=== PATIENT | female | born 1935 | race Caucasian/White ===

== ENCOUNTER 2016-08-13 15:50 | Inpatient (IN) | payer MEDICARE, OTHER ==
[2016-08-13] VITALS (13 sets, daily range): BP systolic 112–163; BP diastolic 52–106; PULSE 80–113; RESP 11–24; TEMP 98.4–98.8; O2SAT 96–99
[~2016-08-13] VITALS: Ht 165.1 cm; Wt 54.2 kg
[~2016-08-13 15:50] MED LIST: DARV PO; GLUCTAB PO; LOVA1TAB47 PO
--- NOTE | 2016-08-13 16:11 | PD ---
HPI Chief Complaint: Neuro Symptoms/ Deficits Time Seen by Provider: 16:01 Travel History International Travel<30 days: No Contact w/Intl Traveler<30days: No Traveled to known affect area: No History of Present Illness HPI 80-year-old female with history of diabetes, previous TIA, presents to the ER today brought in by her because she has had an episode of left arm weakness yesterday that lasted an hour and went away on its own, and today had slurring of speech and confusion for about an hour prior to arrival, although symptoms have now subsided. She denies any current numbness or weakness. She does complain of a 7 out of 10 current headache. She states the headache started this morning. She was incontinent of stool while in the ER waiting for evaluation. The symptoms have largely subsided at this point. Modifying Factors: None Associated Signs & Symptoms: Episodes of left arm weakness, confusion, headache , blurring of the speech Risk Factors: Previous TIA PFSH Past Medical History Cancer: No Diabetes: Yes Glaucoma: No Hepatitis: No Hiatal Hernia: No Hypertension: No Thyroid Disease: No Past Surgical History Pacemaker: No Social History Alcohol Use: No Tobacco Use: No Allergies-Medications (Allergen,Severity, Reaction): Coded Allergies: No Known Allergies (Verified , 08/01/09) Uncoded Allergies: NKA (Allergy, Unknown, 01/09/03) Reported Meds & Prescriptions Reported Meds & Active Scripts Active Reported Aspirin Low Dose (Aspirin) 81 Mg Chew 81 Mg CHEW DAILY Lisinopril 10 Mg Tab 10 Mg PO DAILY Lovastatin 20 Mg Tab 20 Mg PO DAILY Metformin (Metformin HCl) 500 Mg Tab 500 Mg PO DAILY With a meal Review of Systems Except as stated in HPI: all other systems reviewed are Neg Physical Exam Narrative GENERAL: Well-developed elderly white female patient currently none acute distress. She does appear mildly anxious. Awake, alert, oriented 3. SKIN: Focused skin assessment warm/dry. HEAD: Atraumatic. Normocephalic. EYES: Pupils equal and round. No scleral icterus. No injection or drainage. ENT: No nasal bleeding or discharge. Mucous membranes pink and moist. NECK: Trachea midline. No JVD. CARDIOVASCULAR: Regular rate and rhythm. No murmur appreciated. RESPIRATORY: No accessory muscle use. Clear to auscultation. Breath sounds equal bilaterally. GASTROINTESTINAL: Abdomen soft, non-tender, nondistended. Hepatic and splenic margins not palpable. MUSCULOSKELETAL: No obvious deformities. No clubbing. No cyanosis. No edema. NEUROLOGICAL: Awake and alert. No obvious cranial nerve deficits. Motor grossly within normal limits. Normal speech. No pronator drift. PSYCHIATRIC: Appropriate mood and affect; insight and judgment normal. Data Data Last Documented VS Vital Signs Date Time Temp Pulse Resp B/P Pulse Ox O2 Delivery O2 Flow Rate FiO2 08/13/16 17:10 113 20 163/106 97 Room Air 08/13/16 16:44 98.8 Orders Electrocardiogram (08/13/16 16:) Prothrombin Time / Inr (Pt) (08/13/16 16:01) Act Partial Throm Time (Ptt) (08/13/16 16:01) Complete Blood Count With Diff (08/13/16 16:) Comprehensive Metabolic Panel (08/13/16 16:) Troponin I (08/13/16 16:) Ct Brain W/O Iv Contrast(Rout) (08/13/16 16:) Chest, Single Ap (08/13/16 16:) Ecg Monitoring (08/13/16 16:) Iv Access Insert/Monitor (08/13/16 16:) Oximetry (08/13/16 16:01) Sodium Chloride 0.9% Flush (Ns Flush) (08/13/16 16:15) Ondansetron Inj (Zofran Inj) (08/13/16 17:15) Labs Laboratory Tests Test 08/13/16 16:05 White Blood Count 9.7 TH/MM3 Red Blood Count 3.98 MIL/MM3 Hemoglobin 10.5 GM/DL Hematocrit 32.7 % Mean Corpuscular Volume 82.2 FL Mean Corpuscular Hemoglobin 26.4 PG Mean Corpuscular Hemoglobin 32.1 % Concent Red Cell Distribution Width 14.9 % Platelet Count 420 TH/MM3 Mean Platelet Volume 8.5 FL Neutrophils (%) (Auto) 49.5 % Lymphocytes (%) (Auto) 41.2 % Monocytes (%) (Auto) 6.1 % Eosinophils (%) (Auto) 1.9 % Basophils (%) (Auto) 1.3 % Neutrophils # (Auto) 4.8 TH/MM3 Lymphocytes # (Auto) 4.0 TH/MM3 Monocytes # (Auto) 0.6 TH/MM3 Eosinophils # (Auto) 0.2 TH/MM3 Basophils # (Auto) 0.1 TH/MM3 CBC Comment DIFF FINAL Differential Comment Prothrombin Time 10.1 SEC Prothromb Time International 0.9 RATIO Ratio Activated Partial 26.3 SEC Thromboplast Time Sodium Level 141 MEQ/L Potassium Level 4.1 MEQ/L Chloride Level 102 MEQ/L Carbon Dioxide Level 25.4 MEQ/L Anion Gap 14 MEQ/L Blood Urea Nitrogen 15 MG/DL Creatinine 0.94 MG/DL Estimat Glomerular Filtration 57 ML/MIN Rate Random Glucose 95 MG/DL Calcium Level 9.0 MG/DL Total Bilirubin 0.3 MG/DL Aspartate Amino Transf 11 U/L (AST/SGOT) Alanine Aminotransferase 12 U/L (ALT/SGPT) Alkaline Phosphatase 63 U/L Troponin I LESS THAN 0.02 NG/ML Total Protein 7.1 GM/DL Albumin 3.2 GM/DL [facility] Medical Decision Making Medical Screen Exam Complete: Yes Emergency Medical Condition: Yes Medical Record Reviewed: Yes Interpretation(s) EKG shows NSR, no ST elevation or depression, and no arrhythmias. No significant T-wave inversions. Laboratory Tests Test 08/13/16 16:05 Red Blood Count 3.98 MIL/MM3 (4.00-5.30) Hemoglobin 10.5 GM/DL (11.6-15.3) Hematocrit 32.7 % (35.0-46.0) Mean Corpuscular Hemoglobin 26.4 PG (27.0-34.0) Estimat Glomerular Filtration 57 ML/MIN (>89) Rate Aspartate Amino Transf 11 U/L (15-37) (AST/SGOT) Troponin I LESS THAN 0.02 NG/ML (0.02-0.05) Albumin 3.2 GM/DL (3.4-5.0) Differential Diagnosis Left arm weakness, slurred speech, confusionTIA/CVA versus ICH versus electrolyte abnormalities versus dysrhythmias Narrative Course Initial NIH stroke score was 0. Symptoms have resolved by the time she is seen by me in the ER. At this point, she would not be a TPA candidate. CT of the brain did not reveal any signs of acute intracranial processes. Patient had taken her own full dose aspirin and hour prior to arrival to the ER according to patient's . Lab work did not indicate significant electrolyte abnormalities. EKG did not show dysrhythmias. At this point, my plan would be to admit the patient for further evaluation. Case is discussed with Dr. story for admission. Diagnosis Primary Impression: TIA (transient ischemic attack) Admitting Information Admitting Physician Requests: Admit Yessi Salinas MD Aug 13, 2016 16:11
[2016-08-13] MEDS ORDERED: SODIUM CHLORIDE 0.9% FLUSH 10 ML FLUSH IVF PRN ×2 (16:15→17:45)
[2016-08-13 16:16] LABS: AUTOMATED NEUTROPHIL # 4.8 TH/MM3 (1.8-7.7); BASOPHIL # 0.1 TH/MM3 (0-0.2); BASOPHIL % 1.3 % (0.0-2.0); EOSINOPHIL # 0.2 TH/MM3 (0-0.4); EOSINOPHIL % 1.9 % (0.0-4.0); HEMATOCRIT 32.7 % (35.0-46.0); HEMO FLAGS DIFF FINAL; LYMPH % 41.2 % (9.0-44.0); MEAN CELL VOLUME 82.2 FL (80.0-100.0); MEAN CORPUSCULAR HEMOGLOBIN 26.4 PG (27.0-34.0); MEAN CORPUSCULAR HGB CONC 32.1 % (32.0-36.0); MONO % 6.1 % (0.0-8.0); NEUT % 49.5 % (16.0-70.0); PLATELET COUNT 420 TH/MM3 (150-450); RED BLOOD COUNT 3.98 MIL/MM3 (4.00-5.30); RED CELL DISTRIBUTION WIDTH 14.9 % (11.6-17.2); WHITE BLOOD COUNT 9.7 TH/MM3 (4.0-11.0)
[2016-08-13 16:24] LABS: CHLORIDE 102 MEQ/L (98-107); POTASSIUM 4.1 MEQ/L (3.5-5.1); SODIUM (NA) 141 MEQ/L (136-145)
[2016-08-13 16:29] LABS: ANION GAP 14 MEQ/L (5-15); BICARBONATE 25.4 MEQ/L (21.0-32.0); BLOOD UREA NITROGEN 15 MG/DL (7-18)
[2016-08-13 16:32] LABS: ALT (GPT) 12 U/L (10-53); AST (GOT) 11 U/L (15-37); GLOMERULAR FILTRATION RATE 57 ML/MIN (>89)
[2016-08-13 16:33] LABS: TOTAL BILIRUBIN ADULT 0.3 MG/DL (0.2-1.0)
[2016-08-13 16:34] LABS: APTT (PATIENT) 26.3 SEC (24.3-30.1); INTERNATIONAL NORMALIZED RATIO 0.9 RATIO; PROTHROMBIN TIME - PATIENT 10.1 SEC (9.8-11.6)
[2016-08-13] MEDS ORDERED: METF500T PO (16:34)
[2016-08-13] MEDS ORDERED: LISI10TA3 PO (16:34)
[2016-08-13] MEDS ORDERED: ASPI81CH37 CHEW (16:34)
[2016-08-13] MEDS ORDERED: LOVA20TA PO (16:34)
[2016-08-13 16:35] LABS: ALKALINE PHOSPHATASE 63 U/L (45-117)
--- NOTE | 2016-08-13 16:47 | RADHPO ---
EXAM DATE/TIME: 08/13/2016 16:38 [facility] COMPARISON: No previous studies available for comparison. INDICATIONS : Possible CVA. Numbness and weakness. MEDICAL HISTORY : Diabetes mellitus type II. SURGICAL HISTORY : None. ENCOUNTER: Initial ACUITY: 1 day PAIN SCORE: 0/10 LOCATION: Bilateral chest FINDINGS: The lungs are focally clear. There is mild biapical probable pleural parenchymal scarring which appea rs benign. No evidence of effusion. Cardiomediastinal contours satisfactory. Thoracic skeleton appear s grossly intact. CONCLUSION: No acute disease Farzad Franklin MD on August 13, 2016 at 16:45 Board Certified Radiologist. This report was verified electronically.
--- NOTE | 2016-08-13 16:54 | RADHPO ---
EXAM DATE/TIME: 08/13/2016 16:20 [facility] COMPARISON: No previous studies available for comparison. INDICATIONS : Left arm weakness. Slurred speech. Confusion. RADIATION DOSE: 59.16 CTDIvol (mGy) MEDICAL HISTORY : Diabetes mellitus type 2. SURGICAL HISTORY : None. ENCOUNTER: Initial ACUITY: 2 days PAIN SCALE: 1/10 LOCATION: cranial TECHNIQUE: Multiple contiguous axial images were obtained of the head. Using automated exposure control and adj ustment of the mA and/or kV according to patient size, radiation dose was kept as low as reasonably a chievable to obtain optimal diagnostic quality images. FINDINGS: CEREBRUM: The ventricles are normal for age. No evidence of midline shift, mass lesion, hemorrhage or acute in farction. No extra-axial fluid collections are seen. POSTERIOR FOSSA: The cerebellum and brainstem are intact. The 4th ventricle is midline. The cerebellopontine angle i s unremarkable. EXTRACRANIAL: The visualized portion of the orbits is intact. SKULL: The calvaria is intact. No evidence of skull fracture. CONCLUSION: Normal examination. Left lens surgery. Onel Morrison MD on August 13, 2016 at 16:51 Board Certified Radiologist. This report was verified electronically.
[2016-08-13] MEDS ORDERED: ONDANSETRON HCL 4 MG/2 ML VIAL IV PUSH ONE (17:15)
[2016-08-13] MEDS ORDERED: DILTIAZEM HCL 25 MG/5 ML VIAL IV PUSH ONE (17:45)
[2016-08-13] MEDS ORDERED: DILTIAZEM INJ 125 MG in SODIUM CHLORIDE 0.9% INJ 100 ML IV SCH (17:45)
[2016-08-13] MEDS ORDERED: ASPIRIN 325 MG TAB PO ONE (18:00)
[2016-08-13] MEDS ORDERED: HEPARIN-D5W INJ 250 ML IV SCH (18:00)
[2016-08-13] MEDS ORDERED: ONDANSETRON HCL 4 MG/2 ML VIAL IV PUSH PRN (19:00)
[2016-08-13] MEDS ORDERED: GLUCAGON 1 MG/ML VIAL OTHER PRN (19:00)
[2016-08-13] MEDS ORDERED: DEXTROSE 50% IN WATER 50 ML VIAL(D50) IV PUSH PRN (19:00)
[2016-08-13] MEDS ORDERED: ZOLPIDEM TARTRATE 5 MG TAB PO PRN (19:15)
[2016-08-13] MEDS ORDERED: ACETAMINOPHEN 325 MG TAB PO PRN (19:15)
--- NOTE | 2016-08-13 19:34 | MH ---
cc: PIETRO ODONNELL M.D. DATE OF ADMISSION: 08/13/2016 ADMITTING DIAGNOSIS: 1. Recurrent episodes of weakness left arm with dysarthria and numbness of the left upper extremity and probable TIA. 2. New-onset atrial fibrillation with rapid ventricular response. 3. Type 2 diabetes mellitus. 4. Hyperlipidemia. 5. History of hypertension, not currently taking any blood pressure medicine. HISTORY OF PRESENT ILLNESS: This is a 80-year-old white female who came to the emergency room today after having another episode where she had slurring of her speech. She reports that yesterday morning she had about a 30-minute episode wherein she had weakness and difficulty using her left arm associated with some slight numbness of the left upper extremity. She had some slight trouble with dysarthria. She had maybe some slight confusion, nothing severe. The symptoms subsided as mentioned after about 30 minutes. She had no chest pain or shortness of breath then. She could not say for sure whether she had any palpitations of her heart then. She does take a baby aspirin a day and when her symptoms went away she felt fine the rest of the day and last night but around two o'clock today her noticed that she had slurring of her speech. She did not seem to have the arm symptoms at this time. He brought her to the emergency room and by the time they got here, her symptoms were pretty much back to normal. She had a CT brain scan that was negative. She was being admitted for a TIA. While she was in the emergency department, she had to go to the bathroom and then became nauseated and then she was noted to go into rapid atrial fibrillation with a heart rate of around 150 to 160 and has been put on a Cardizem drip and her heart rate is down around 100 but still in atrial fibrillation. The neurologist was consulted over the phone by the emergency room physician and it has been recommended she get on a heparin drip. She is being admitted for further evaluation of her atrial fibrillation and TIA. PAST MEDICAL HISTORY: 1. She apparently has had some hypertension. She was taking lisinopril but had side effects to it and just did not feel well. She states she had headache and weakness with it so she had not been taking any blood pressure medicine. She has hyperlipidemia but also and was taking lovastatin but had stopped it several months ago because it did not agree with her. The only medicine she is on is metformin for diabetes. 2. She has had type 2 diabetes for several years. 3. She denies any history of heart disease, heart failure, angina, no history of arrhythmia no lung disease, liver or kidney disease. No peptic ulcer. No colon disease. No cancer. 4. She had a questionable TIA over a year ago. It sounds like she was evaluated by [facility] Neurologist, Dr. Garcia but everything was negative. She has only been on a baby aspirin. PAST SURGICAL HISTORY: Left cataract extraction with lens implant. ALLERGIES: SHE HAD SIDE EFFECTS TO LOVASTATIN AND LISINOPRIL. MEDICATIONS: Metformin 500 milligrams two twice a day. FAMILY HISTORY: Her mother when she was only about 2 years old of tuberculosis. She lived with her grandmother. She never knew her father. SOCIAL HISTORY: She is . Never smoked. She does not use alcohol. 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 REVIEW OF SYSTEMS: GENERAL: No fever, chills or sweats. HEAD, EYES, EARS, NOSE, THROAT: No double vision. No runny nose or sore throat. CARDIOVASCULAR: She had no palpitations or chest pain or shortness of breath. She did have the atrial fibrillation that just started in the emergency department. GASTROINTESTINAL: She had the episode of nausea when she was in atrial fibrillation. She has had no melena, rectal bleeding, abdominal pain or diarrhea. GENITOURINARY: No dysuria or hematuria or incontinence. MUSCULOSKELETAL: Without complaints. NEUROLOGIC: As mentioned. PHYSICAL EXAMINATION: GENERAL: A pleasant white female who is in no acute distress. VITAL SIGNS: Her heart rate now is around 98 to 109 and irregular. Her blood pressure was 136/84 when she first came into the emergency department. The last check was 151/63. 02 saturation 98%. She has been afebrile. HEAD, EYES, EARS, NOSE, THROAT: Tympanic membranes clear. Nose negative. She has a lens implant left eye. Mouth without inflammation or lesions. She has dentures. NECK: Without bruits. No jugular venous distention. HEART: Irregular rhythm. No significant murmur heard. LUNGS: Clear. ABDOMEN: Abdomen soft and nontender. No masses. EXTREMITIES: Pulses about 1-1/2+ both feet. No edema. No calf tenderness. SKIN: Negative. NEUROLOGIC: She is alert and oriented. Motor strength appears to be equal in all extremities with no definite [id number] testing was normal. We did not examine her gait. LABORATORY: Her BUN was 15, creatinine was 0.94, GFR 57, sodium 141, potassium 4.1, chloride 102, carbon dioxide 25.4. AST and ALT and alkaline phosphatase normal. Troponin less than 0.02. Total protein 7.1, albumin 3.2. White count was 9.7, hemoglobin was 10.5, MCV 82.2. IMAGING STUDIES: Chest x-ray showed no acute disease. CT brain scan showed normal exam. ASSESSMENT: As noted. PLAN: 1. The patient has been started on heparin. 2. A consult to neurology has been placed and Dr. Starr has already talked to the emergency room physician. 3. She will be maintained on Cardizem drip for now and will consult cardiology. 4. A 2-D echocardiogram is being ordered. 5. Carotid ultrasound. 6. MRI brain scan. 7. Will just monitor her blood pressure for now. 8. Will hold her Metformin for now since she is going to have imaging with contrast. Will just do Accu-Cheks and blood sugars for now. 9. She will be kept at bed rest. 10. Will check a TSH and a lipid profile. MD WILLIAMS Siddiqui/CIARA /6:53 PM /7:14 PM
[2016-08-13] MEDS: INSULIN ASPART SUPPLEMENTAL SCALE SQ SCH (21:00)
--- NOTE | 2016-08-13 22:57 | EKG ---
Date Performed: 08/13/2016 Time Performed: 17:17:04 PTAGE: 80 years EKG: Atrial fibrillation with rapid ventricular response Extensive ST-T changes may be due to my ocardial ischemia Abnormal ECG PREVIOUS TRACING : 08/13/2016 16.11 Compared to previous tracing, atrial fibrillation has repla chad Sinus rhythm , diffuse ST/T changes are now more pronounced. DOCTOR: Ben Moise Interpretating Date/Time 08/13/2016 22:56:16
--- NOTE | 2016-08-13 23:03 | EKG ---
Date Performed: 08/13/2016 Time Performed: 16:11:58 PTAGE: 80 years EKG: Sinus rhythm with PAC(s) Extensive ST-T changes, consider ischemia Borderline ECG PREVIOUS TRACING : 03/22/2002 22.43 Compared to previous tracing, ST/T changes diffusely are no w present. DOCTOR: Ben Moise Interpretating Date/Time 08/13/2016 23:02:12
[2016-08-14] VITALS (11 sets, daily range): BP systolic 110–165; BP diastolic 46–79; PULSE 66–79; RESP 8–29; TEMP 97.2–98.4; O2SAT 96–97
[2016-08-14 01:00] LABS: APTT (PATIENT) 39.4 SEC (24.3-30.1)
--- NOTE | 2016-08-14 06:07 | HHI.PR ---
Subjective Remarks She has no complaints. She converted to sinus rhythm after leaving the ER. Still on low dose of Cardizem drip and monitor shows sinus rhythm with an occasional PAC. Objective Vitals Vital Signs Date Time Temp Pulse Resp B/P Pulse Ox O2 Delivery O2 Flow Rate FiO2 08/14/16 03:01 66 18 110/46 08/14/16 02:01 68 8 115/46 08/14/16 01:00 78 22 122/59 08/14/16 00:20 78 29 122/59 08/14/16 00:01 97.2 74 16 112/48 08/14/16 00:01 74 16 112/48 08/13/16 23:01 80 23 116/62 08/13/16 22:00 84 16 129/60 08/13/16 21:00 88 24 126/57 97 08/13/16 20:04 97 149/65 96 08/13/16 20:00 98 11 141/66 97 08/13/16 20:00 98.4 98 11 141/66 97 08/13/16 20:00 98.4 98 11 141/66 97 08/13/16 19:54 112/84 08/13/16 19:14 98 132/63 97 08/13/16 18:46 107 151/63 98 08/13/16 18:13 97 140/63 98 08/13/16 17:54 99 115/52 98 08/13/16 17:10 113 20 163/106 97 Room Air 08/13/16 16:44 98.8 96 16 136/84 99 08/13/16 16:14 99 08/13/16 16:14 98.8 96 16 136/84 99 08/13/16 08/13/16 08/14/16 15:00 23:00 07:00 Intake Total 236 ml Output Total 300 ml 300 ml Balance -64 ml -300 ml Intake Oral 200 ml IV Total 36 ml Output Urine Total 300 ml 300 ml Result Diagram: 08/13/16 1605 08/13/16 1605 Other Results Laboratory Tests Test 08/13/16 08/14/16 16:05 00:30 White Blood Count 9.7 TH/MM3 Red Blood Count 3.98 MIL/MM3 Hemoglobin 10.5 GM/DL Hematocrit 32.7 % Mean Corpuscular Volume 82.2 FL Mean Corpuscular Hemoglobin 26.4 PG Mean Corpuscular Hemoglobin 32.1 % Concent Red Cell Distribution Width 14.9 % Platelet Count 420 TH/MM3 Mean Platelet Volume 8.5 FL Neutrophils (%) (Auto) 49.5 % Lymphocytes (%) (Auto) 41.2 % Monocytes (%) (Auto) 6.1 % Eosinophils (%) (Auto) 1.9 % Basophils (%) (Auto) 1.3 % Neutrophils # (Auto) 4.8 TH/MM3 Lymphocytes # (Auto) 4.0 TH/MM3 Monocytes # (Auto) 0.6 TH/MM3 Eosinophils # (Auto) 0.2 TH/MM3 Basophils # (Auto) 0.1 TH/MM3 CBC Comment DIFF FINAL Differential Comment Prothrombin Time 10.1 SEC Prothromb Time International 0.9 RATIO Ratio Activated Partial 26.3 SEC 39.4 SEC Thromboplast Time Sodium Level 141 MEQ/L Potassium Level 4.1 MEQ/L Chloride Level 102 MEQ/L Carbon Dioxide Level 25.4 MEQ/L Anion Gap 14 MEQ/L Blood Urea Nitrogen 15 MG/DL Creatinine 0.94 MG/DL Estimat Glomerular Filtration 57 ML/MIN Rate Random Glucose 95 MG/DL Calcium Level 9.0 MG/DL Total Bilirubin 0.3 MG/DL Aspartate Amino Transf 11 U/L (AST/SGOT) Alanine Aminotransferase 12 U/L (ALT/SGPT) Alkaline Phosphatase 63 U/L Troponin I LESS THAN 0.02 NG/ML Total Protein 7.1 GM/DL Albumin 3.2 GM/DL Labs today pending Imaging Last Impressions Head CT 08/13/16 1601 Signed Impressions: Service Date/Time: August 16:20 - CONCLUSION: Normal examination. Left lens surgery. Onel Morrison MD Chest X-Ray 08/13/16 1601 Signed Impressions: Service Date/Time: August 16:38 - CONCLUSION: No acute disease Farzad Franklin MD Objective Remarks Exam: Pleasant elderly female in no distress. HEENT: Pupils equal, no scleral icterus, mouth negative Neck: No JVD Heart: RRR with no murmur Lungs:Clear Abdomen: Soft, nontender, no masses Extremities: No edema Neuro: Alert, oriented, normal motor and sensory exam A/P Assessment and Plan Assessment: --TIA --New onset atrial fibrillation converted to sinus rhythm on Cardizem drip --Hypertension---patient had stopped her Lisinopril because of side effects --Hyperlipidemia--patient had stopped her statin drug due to side effects --Type 2 diabetes mellitus--Metformin on hold since imaging has been ordered Plan: Start on oral Cardizem ER 180mg daily for hypertension and for rate control. Cardiology and neurology have been consulted. I will leave decision as to what type of oral anticoagulation is needed. She is on Heparin now. She had a carotid ultrasound, 2D echo, and MRI brain ordered for today. She is asymptomatic from a neurology standpoint now. If her tests are negative and she can be transitioned to oral therapy for further TIA prevention then she possible could be discharged later today if okay with consultants. Delano Akins MD Aug 14, 2016 06:07
[2016-08-14 06:11] LABS: POTASSIUM 3.9 MEQ/L (3.5-5.1)
[2016-08-14 06:15] LABS: BICARBONATE 29.3 MEQ/L (21.0-32.0)
[2016-08-14] MEDS: INSULIN ASPART SUPPLEMENTAL SCALE SQ SCH ×4 (07:00→21:00)
--- NOTE | 2016-08-14 07:40 | PD.CONS ---
HPI Service CV Consult Requested By Dr. Akins Reason for Consult a-fib Primary Care Physician Loida Benson MD History of Present Illness Here with HTN and type 2 diabetes admitted for TI. She states she yesterday she wa having episodic slurred speech and some confusion. She was brought to the ER and eventually witnessed to go into atrial fibrillation with RVR. She denies any chest pain, shortness of breath or palpitations Review of Systems Consitutional: DENIES: Fatigue, Fever, Chills, Weight gain, Weight loss Eyes: DENIES: Amaurosis Fugax, Change in vision HEENT: DENIES: Lightheadedness, Change in hearing Respiratory: DENIES: See HPI, Cough, Snoring, Shortness of breath, Wheezing, Sputum production Cardiovascular: COMPLAINS OF: See HPI Gastrointestinal: DENIES: Nausea, Vomiting, Change in bowel habits, Reflux, Bloody stools, Melena Genitourinary: DENIES: Urinary incontinence, Difficulty voiding Integumentary: DENIES: Rash Neurologic: DENIES: Tingling or numbness, Memory problems, Poor Balance, Stroke symptoms Musculoskeletal: DENIES: Joint pain, Muscle pain, Limited range of motion, Back pain Psychiatric: DENIES: Anxiety, Depression, Sleep disturbances Hematologic: DENIES: Bruising tendencies, Bleeding tendencies Endocrine: DENIES: Weight gain, Weight loss, Thyroid disease Past Family Social History Allergies: Coded Allergies: No Known Allergies (Verified , 08/13/16) Uncoded Allergies: NKA (Allergy, Unknown, 01/09/03) Past Medical History see HPI TIA one year ago Reported Medications Reported Meds & Active Scripts Active Reported Aspirin Low Dose (Aspirin) 81 Mg Chew 81 Mg CHEW DAILY Lisinopril 10 Mg Tab 10 Mg PO DAILY Lovastatin 20 Mg Tab 20 Mg PO DAILY Metformin (Metformin HCl) 500 Mg Tab 500 Mg PO DAILY With a meal Active Ordered Medications Current Medications Medications (Trade) Dose Ordered Sig/Dara Route Start Time Stop Time Status Last Admin Sodium Chloride 2 ml 2 ml UNSCH PRN IVF 08/13/16 16:15 (Cardizem Inj/NS Inj) 125 ml @ 0 mls/hr TITRATE IV 08/13/16 17:45 08/13/16 18:04 Sodium Chloride 2 ml 2 ml UNSCH PRN IVF 08/13/16 17:45 (Heparin-D5W Inj) 250 ml @ 0 mls/hr TITRATE IV 08/13/16 18:00 08/13/16 18:39 (Zofran Inj) 4 mg Q6H PRN IV PUSH 08/13/16 19:00 08/13/16 19:09 (D50w (Vial) Inj) 25 ml UNSCH PRN IV PUSH 08/13/16 19:00 (Glucagon Inj) 1 mg UNSCH PRN OTHER 08/13/16 19:00 (Ambien) 5 mg HS PRN PO 08/13/16 19:15 (Tylenol) 650 mg Q6H PRN PO 08/13/16 19:15 (Cardizem Cd) 180 mg DAILY PO 08/14/16 09:00 Family History left cataract surgery with lens implant Social History never smoker, denies alcohol or substance abuse Physical Exam Vital Signs Vital Signs Date Time Temp Pulse Resp B/P Pulse Ox O2 Delivery O2 Flow Rate FiO2 08/14/16 03:01 66 18 110/46 08/14/16 02:01 68 8 115/46 08/14/16 01:00 78 22 122/59 08/14/16 00:20 78 29 122/59 08/14/16 00:01 97.2 74 16 112/48 08/14/16 00:01 74 16 112/48 08/13/16 23:01 80 23 116/62 08/13/16 22:00 84 16 129/60 08/13/16 21:00 88 24 126/57 97 08/13/16 20:04 97 149/65 96 08/13/16 20:00 98 11 141/66 97 08/13/16 20:00 98.4 98 11 141/66 97 08/13/16 20:00 98.4 98 11 141/66 97 08/13/16 19:54 112/84 08/13/16 19:14 98 132/63 97 08/13/16 18:46 107 151/63 98 08/13/16 18:13 97 140/63 98 08/13/16 17:54 99 115/52 98 08/13/16 17:10 113 20 163/106 97 Room Air 08/13/16 16:44 98.8 96 16 136/84 99 08/13/16 16:14 99 08/13/16 16:14 98.8 96 16 136/84 99 Physical Exam GENERAL: Well-nourished, well-developed patient in no apparent distress. NECK: No JVD. No carotid bruit. CARDIOVASCULAR: Regular rate and rhythm. S1/S2 no murmur, rub, or gallop. RESPIRATORY: No accessory muscle use. Clear to auscultation. Breath sounds equal bilaterally. GASTROINTESTINAL: Abdomen soft, non-tender, nondistended. MUSCULOSKELETAL: Extremities without clubbing, cyanosis, or edema. Laboratory Laboratory Tests Test 08/13/16 08/14/16 08/14/16 16:05 00:30 05:25 White Blood Count 9.7 Red Blood Count 3.98 Hemoglobin 10.5 Hematocrit 32.7 Mean Corpuscular Volume 82.2 Mean Corpuscular Hemoglobin 26.4 Mean Corpuscular Hemoglobin 32.1 Concent Red Cell Distribution Width 14.9 Platelet Count 420 Mean Platelet Volume 8.5 Neutrophils (%) (Auto) 49.5 Lymphocytes (%) (Auto) 41.2 Monocytes (%) (Auto) 6.1 Eosinophils (%) (Auto) 1.9 Basophils (%) (Auto) 1.3 Neutrophils # (Auto) 4.8 Lymphocytes # (Auto) 4.0 Monocytes # (Auto) 0.6 Eosinophils # (Auto) 0.2 Basophils # (Auto) 0.1 CBC Comment DIFF FINAL Differential Comment Prothrombin Time 10.1 Prothromb Time International 0.9 Ratio Activated Partial 26.3 39.4 Thromboplast Time Sodium Level 141 140 Potassium Level 4.1 3.9 Chloride Level 102 101 Carbon Dioxide Level 25.4 29.3 Anion Gap 14 10 Blood Urea Nitrogen 15 16 Creatinine 0.94 0.87 Estimat Glomerular Filtration 57 62 Rate Random Glucose 95 85 Calcium Level 9.0 8.4 Total Bilirubin 0.3 Aspartate Amino Transf 11 (AST/SGOT) Alanine Aminotransferase 12 (ALT/SGPT) Alkaline Phosphatase 63 Troponin I LESS THAN 0.02 Total Protein 7.1 Albumin 3.2 Thyroid Stimulating Hormone 1.510 3rd Gen Result Diagram: 08/13/16 1605 08/14/16 0525 Assessment and Plan Problem List: (1) TIA (transient ischemic attack) (2) Paroxysmal a-fib Assessment and Plan She has converted to SR. Stop diltiazem gtt and continue PO diltiazem. Stop the heparin and start Eliquis. Await Echo and carotid u/s. If they are normal she can be discharged from a CV standpoint and plan for outpatient stress test. Buck Parker Aug 14, 2016 07:40
[2016-08-14 07:50] LABS: APTT (PATIENT) 36.5 SEC (24.3-30.1)
[2016-08-14] MEDS: APIXABAN 5 MG TABLET PO SCH ×2 (08:26→21:12)
[2016-08-14] MEDS: DILTIAZEM-CD 180 MG CAP ER PO SCH (08:26)
[2016-08-14 09:01] LABS: HDL CHOLESTEROL 54.4 MG/DL (40.0-60.0)
--- NOTE | 2016-08-14 09:07 | PD.CONS ---
History of Present Illness Service Neurology Consult Requested By medical Reason for Consult tia Primary Care Physician Loida Benson MD History of Present Illness HPI 80-year-old female with history of diabetes, previous TIA, presents to the ER today brought in by her because she has had an episode of left arm weakness yesterday that lasted an hour and went away on its own, and yesterday had slurring of speech and confusion for about an hour prior to arrival, although symptoms have now subsided.apparently had incontinence in er. has had a couple of similar incidents in the past. found to have afib with rvr new- onset. started on hep gtt. doing well overnight. seen by cardiology. asking if she can go home. no hurley/cp/neck pain/weakness/vision loss/sensory symptoms. no hx of sz. ct brain - no aicp glucose [address] she has a supportive spouse. PFSH Past Medical History Cancer: No Diabetes: Yes Glaucoma: No Hepatitis: No Hiatal Hernia: No Hypertension: No Thyroid Disease: No Past Surgical History Pacemaker: No Social History Alcohol Use: No Tobacco Use: No Allergies-Medications (Allergen,Severity, Reaction): Coded Allergies: No Known Allergies (Verified , 08/01/09) Uncoded Allergies: NKA (Allergy, Unknown, 01/09/03) Reported Meds & Prescriptions Reported Meds & Active Scripts Active Reported Aspirin Low Dose (Aspirin) 81 Mg Chew 81 Mg CHEW DAILY Lisinopril 10 Mg Tab 10 Mg PO DAILY Lovastatin 20 Mg Tab 20 Mg PO DAILY Metformin (Metformin HCl) 500 Mg Tab 500 Mg PO DAILY With a meal Review of Systems Except as stated in HPI: all other systems reviewed are Neg Review of Systems All other ROS: ROS reviewed as documented in chart Past Family Social History Allergies: Coded Allergies: No Known Allergies (Verified , 08/13/16) Uncoded Allergies: NKA (Allergy, Unknown, 01/09/03) Active Ordered Medications Current Medications Medications (Trade) Dose Ordered Sig/Dara Route Start Time Stop Time Status Last Admin (NS Flush) 2 ml UNSCH PRN IVF 08/13/16 16:15 (Zofran Inj) 4 mg Q6H PRN IV PUSH 08/13/16 19:00 08/13/16 19:09 (D50w (Vial) Inj) 25 ml UNSCH PRN IV PUSH 08/13/16 19:00 (Glucagon Inj) 1 mg UNSCH PRN OTHER 08/13/16 19:00 (Ambien) 5 mg HS PRN PO 08/13/16 19:15 (Tylenol) 650 mg Q6H PRN PO 08/13/16 19:15 (Cardizem Cd) 180 mg DAILY PO 08/14/16 09:00 08/14/16 08:26 (Eliquis) 5 mg BID PO 08/14/16 09:00 08/14/16 08:26 Exam I&O / VS 08/13/16 08/13/16 08/14/16 15:00 23:00 07:00 Intake Total 236 ml 122 ml Output Total 300 ml 300 ml Balance -64 ml -178 ml Intake Oral 200 ml IV Total 36 ml 122 ml Output Urine Total 300 ml 300 ml Vital Signs Date Time Temp Pulse Resp B/P Pulse Ox O2 Delivery O2 Flow Rate FiO2 08/14/16 03:01 66 18 110/46 08/14/16 02:01 68 8 115/46 08/14/16 01:00 78 22 122/59 08/14/16 00:20 78 29 122/59 08/14/16 00:01 97.2 74 16 112/48 08/14/16 00:01 74 16 112/48 08/13/16 23:01 80 23 116/62 08/13/16 22:00 84 16 129/60 08/13/16 21:00 88 24 126/57 97 08/13/16 20:04 97 149/65 96 08/13/16 20:00 98 11 141/66 97 08/13/16 20:00 98.4 98 11 141/66 97 08/13/16 20:00 98.4 98 11 141/66 97 08/13/16 19:54 112/84 08/13/16 19:14 98 132/63 97 08/13/16 18:46 107 151/63 98 08/13/16 18:13 97 140/63 98 08/13/16 17:54 99 115/52 98 08/13/16 17:10 113 20 163/106 97 Room Air 08/13/16 16:44 98.8 96 16 136/84 99 08/13/16 16:14 99 08/13/16 16:14 98.8 96 16 136/84 99 General: Alert and Oriented Eye: EOMI Respiratory: Non-labored respirations Cardiology: Normal rate Musculoskeletal: ROM Neurologic: Alert, Oriented, Normal sensory, Normal motor, No focal defects, CN II-XII intact, Gag reflex normal, Normal DTR's Psychiatric: Cooperative, Appropriate mood & affect, Normal judgement Exam Comments ox 3. no aphasia,. follows. left surgical cataract extraction changes, mild head dyskinesias, face sym, vff, eomi, no drift, no neglect Review/Management Diagnosis/Plan: (1) TIA (transient ischemic attack) Plan: probable rt hemispheric tia, cardioembolic with confusion and incontinence, r/o sz recs mri brain check cta brain/carotids. ICA/CCA ratio 2 on the rt carotid; could be culprit vessel. 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
--- NOTE | 2016-08-14 09:09 | RADHPO ---
EXAM DATE/TIME: 08/14/2016 08:05 [facility] COMPARISON: No previous studies available for comparison. INDICATIONS : Transient ischemic attack. MEDICAL HISTORY : Hypercholesterolemia. Hypertension. Diabetes mellitus type 2. Transient ischemic attack. Left arm num bness. SURGICAL HISTORY : Left cataract surgery. ENCOUNTER: Initial ACUITY: 2 days PAIN SCORE: 10 LOCATION: Bilateral neck PEAK SYSTOLIC VELOCITIES (cm/sec): ICA/CCA RATIO: Right: 2.0 Left: 1.6 ICA: Right: 163 Left: 130 CCA: Right: 80 Left: 81 ECA: Right: 125 Left: 151 VERTEBRAL: Right: 69 antegrade Left: 58 antegrade Elevated flow velocities and ICA/CCA ratios have been found to correlate with increased degrees of vessel stenosis, calculated as percentage of diameter relative to a normal segment of distal ICA/CCA FINDINGS: There is antegrade flow in the bilateral vertebral arteries grayscale images demonstrate moderate ath erosclerotic plaquing of the distal common carotid and proximal right internal carotid artery with el evated velocities and ratio corresponding to an estimated 50-69% stenosis. On the left there is mild elevated velocity noted and moderate calcific plaquing at the bifurcation without evidence for hemody namically significant stenosis. CONCLUSION: Atherosclerotic disease without evidence for hemodynamically significant stenosis at this time. Karime melgoza see above. Serg Connor MD on August 14, 2016 at 9:06 Board Certified Radiologist. This report was verified electronically.
--- NOTE | 2016-08-14 09:32 | EC ---
Study Study Date:08/14/2016 STUDY CONCLUSIONS SUMMARY - Procedure narrative: Transthoracic echocardiography. Image quality was fair. Scanning was performed from the parasternal, apical, and subcostal acoustic windows. - Left ventricle: The cavity size was normal. Wall thickness was normal. Systolic function was normal. The estimated ejection fraction was in the range of 55% to 60%. Although no diagnostic regional wall motion abnormality was identified, this possibility cannot be completely excluded on the basis of this study. - Mitral valve: Trace regurgitation. - Tricuspid valve: Trace regurgitation. If LV function is below 40, please consider prescribing an ACEI or ARB or document rationale for non-use. PROCEDURE DATA STUDY STATUS: Elective. Procedure: Transthoracic echocardiography. Image quality was fair. Scanning was performed from the parasternal, apical, and subcostal acoustic windows. Study completion: The patient tolerated the procedure well. Transthoracic echocardiography. M-mode, complete 2D, complete spectral Doppler, and color Doppler. Patient status: Inpatient. CARDIAC ANATOMY LEFT VENTRICLE: The cavity size was normal. Wall thickness was normal. Systolic function was normal. The estimated ejection fraction was in the range of 55% to 60%. Although no diagnostic regional wall motion abnormality was identified, this possibility cannot be completely excluded on the basis of this study. AORTIC VALVE: Trileaflet; normal thickness leaflets. Doppler: Transvalvular velocity was within the normal range. There was no stenosis. No regurgitation. AORTA: Aortic root: The aortic root was normal in size. MITRAL VALVE: Structurally normal valve. Doppler: Transvalvular velocity was within the normal range. There was no evidence for stenosis. Trace regurgitation. LEFT ATRIUM: The atrium was normal in size. RIGHT VENTRICLE: The cavity size was normal. Wall thickness was normal. PULMONIC VALVE: Doppler: Transvalvular velocity was within the normal range. There was no evidence for stenosis. No regurgitation. TRICUSPID VALVE: Structurally normal valve. Doppler: Transvalvular velocity was within the normal range. Trace regurgitation. PULMONARY ARTERY: The main pulmonary artery was normal-sized. Systolic pressure was within the normal range. RIGHT ATRIUM: The atrium was normal in size. PERICARDIUM: There was no pericardial effusion. SYSTEMIC VEINS: Inferior vena cava: The vessel was normal in size. BASIC MEASUREMENTS ADULT NORMAL Left ventricle LV internal dimension, ED, chordal level, *39.4 mm 43-52 PLAX LV internal dimension, ES, chordal level, 30.7 mm 23-38 PLAX Fractional shortening, chordal level, PLAX *22 % >29 LV posterior wall thickness, ED 11.7 mm IVS/LVPW ratio, ED 0.97 <1.3 Ventricular septum Septal thickness, ED 11.4 mm Aortic valve Leaflet separation 18 mm 15-26 Right ventricle RV internal dimension, ED, PLAX 24.4 mm 19-38 BASIC MEASUREMENTS ADULT NORMAL Aortic valve Leaflet separation 18 mm 15-26 Aorta Root diameter, ED 31 mm 20-37 Left atrium Anterior-posterior dimension, ES 35 mm 19-40 LA/aortic root ratio 1.13 LEGEND: Mean values are shown as u=mean value. Asterisk (*) chan values outside specified normal range. Prepared and signed by Ben Moise [id number]
[2016-08-14] MEDS ORDERED: SODIUM CHLOR 0.9% 1000 ML INJ 1,000 ML IV SCH (09:45)
[2016-08-14] MEDS: ATORVASTATIN 20 MG TAB PO SCH (11:26)
[2016-08-14] MEDS ORDERED: METFORMIN HOLD POST IV CONTRAST SCH (15:45)
--- NOTE | 2016-08-14 16:06 | RADHPO ---
EXAM DATE/TIME: 08/14/2016 15:19 [facility] COMPARISON: CT BRAIN W/O CONTRAST, August 13, 2016, 16:20. INDICATIONS : Slurred speech. MEDICAL HISTORY : Hypertension. Diabetes mellitus type 2. SURGICAL HISTORY : Cataract. ENCOUNTER: Initial ACUITY: 2 day PAIN SCORE: 0/10 LOCATION: head TECHNIQUE: Multiplanar, multisequence MRI of the brain was performed without contrast. FINDINGS: Diffusion weighted images demonstrate no restricted diffusion to suggest acute infarct. 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 No definite evidence of mass or hemorrhage. CONCLUSION: 1. Atrophy and white matter disease with remote left frontal insult. Serg Connor MD on August 14, 2016 at 16:03 Board Certified Radiologist. This report was verified electronically.
[2016-08-14] MEDS ORDERED: IOHEXOL 350 MG/ML 10 ML VIAL (for RAD DIAG) IV ONE (16:35)
--- NOTE | 2016-08-14 16:57 | RADHPO ---
EXAM DATE/TIME: 08/14/2016 15:33 [facility] COMPARISON: CTA CAROTID ARTERIES W 3D RECON, August 14, 2016, 15:33. INDICATIONS : Headache with left arm weakness and slurred speech. IV CONTRAST: 100 cc Omnipaque 350 (iohexol) IV ; Cumulative dose for multiple exams. RADIATION DOSE: 42.87 CTDIvol (mGy) ; Combined studies MEDICAL HISTORY : Cerebrovascular disease. Hypertension. Diabetes. SURGICAL HISTORY : None. ENCOUNTER: Initial ACUITY: 1 day PAIN SCALE: 0/10 LOCATION: cranial TECHNIQUE: Volumetric scanning was performed using a multi-row detector CT scanner. The data was post processed with a variety of visualization algorithms including full volume maximum intensity projection, multi -planar sliding thin slab reformation, curved planar reformation, and surface rendering techniques. Using automated exposure control and adjustment of the mA and/or kV according to patient size, radiat ion dose was kept as low as reasonably achievable to obtain optimal diagnostic quality images. FINDINGS: There is excellent visualization of the major intracranial arteries out to the second-order branch ve ssels. There is no evidence for aneurysm, vessel truncation or stenosis, and no evidence for vascula r malformation. There is moderate circumferential plaque deposition left proximal subclavian artery at the origin. Th ere is no evidence for hemodynamically significant stenosis at the carotid bifurcations. Carotid and vertebral artery calcifications are present. CONCLUSION: 1. No evidence for hemodynamically significant stenosis, aneurysm or occlusion. eSrg Connor MD on August 14, 2016 at 16:52 Board Certified Radiologist. This report was verified electronically.
[2016-08-14] MEDS ORDERED: PHENYTOIN SODIUM 100 MG CAP PO ONE (17:00)
--- NOTE | 2016-08-14 17:05 | RADHPO ---
EXAM DATE/TIME: 08/14/2016 15:33 [facility] COMPARISON: No previous studies available for comparison. INDICATIONS : Headache with left arm weakness and slurred speech. IV CONTRAST: 100 cc Omnipaque 350 (iohexol) IV ; Cumulative dose for multiple exams. RADIATION DOSE: 40.15 CTDIvol (mGy) ; Combined studies MEDICAL HISTORY : Hypertension. Cerebrovascular disease. Diabetes. SURGICAL HISTORY : None. ENCOUNTER: Initial ACUITY: 1 day PAIN SCALE: 0/10 LOCATION: neck Elevated flow velocities and ICA/CCA ratios have been found to correlate with increased degrees of vessel stenosis, calculated as percentage of diameter relative to a normal segment of distal ICA/CCA. TECHNIQUE: Volumetric scanning was performed using a multirow detector CT scanner. The data was post processed with a variety of visualization algorithms including full-volume maximum intensity projection, multip lanar sliding thin-slab reformation, curved-planar reformation, and surface-rendering techniques. Us ing automated exposure control and adjustment of the mA and/or kV according to patient size, radiatio n dose was kept as low as reasonably achievable to obtain optimal diagnostic quality images. FINDINGS: AORTIC ARCH: The innominate and left common carotid arteries have a common origin. There is no evidence of ostial stenosis. RIGHT CAROTID: The common carotid artery is intact. The carotid bulb has a normal configuration without ulceration o r narrowing. Minimal noncalcified plaque is seen in the proximal internal carotid artery. There is no significant stenosis. The external carotid artery is intact. LEFT CAROTID: Eccentric calcified plaque is identified in the left carotid bifurcation. There is no evidence of sig nificant stenosis. VERTEBRALS: The vertebral arteries are asymmetric with the left being dominant. No stenotic lesions are seen. CONCLUSION: No evidence of hemodynamically significant stenosis. Evangelist Gonzalez MD on August 14, 2016 at 16:58 Board Certified Radiologist. This report was verified electronically.
[2016-08-14] MEDS ORDERED: ATORVASTATIN 40 MG TAB PO SCH (21:00)
[2016-08-14] MEDS: PHENYTOIN SODIUM 100 MG CAP PO SCH (21:12)
[2016-08-14] MEDS ORDERED: LORazepam 2 MG/ML VIAL IV PUSH ONE (22:30)
--- NOTE | 2016-08-14 22:46 | MG ---
cc: ESTRELLA MACHADO MD Lab No: [id number] Date: 08/14/16 Age: Sex: F Race: DATE OF : 1935 HISTORY An 80-year-old. History of confusion, incontinence. DESCRIPTION The posterior rhythm demonstrated 6-10 Hz activity, 20-50 microvolts, low amplitude beta in the frontal channels. Good anterior to posterior gradient. Bursts of 4-5 Hz theta activity occurring in a generalized fashion. Left temporal sharp transient T5 epoch 19. Three large sharply contoured waveforms occurring at T5-L1 epoch 28 left greater than right. Sharp channels at epoch 40. Left T5-L1 sharp wave epoch 43. Reduced driving with photic stimulation. Good EEG variability reactivity. ____ across theta epoch 93 and 94. There are bursts of bitemporal slowing and more bilateral sharp transients epoch 104. Single-lead EKG showing sinus rhythm. INTERPRETATION Mild encephalopathy predominantly in the left temporal region. Paroxysmal slowing and sharp transients which could suggest an epileptic focus. Clinical correlation. MD ELVIN Cade/KEIRY /9:38 PM /10:00 PM
[2016-08-15] VITALS: PULSE 81; PULSE 82; RESP 18; TEMP 98.4; O2SAT 96
[2016-08-15 04:00] VITALS: BP 155/60; PULSE 74; PULSE 75; RESP 18; TEMP 98; O2SAT 97
[2016-08-15 06:11] LABS: AUTOMATED NEUTROPHIL # 4.6 TH/MM3 (1.8-7.7); BASOPHIL % 0.5 % (0.0-2.0); EOSINOPHIL # 0.1 TH/MM3 (0-0.4); EOSINOPHIL % 1.5 % (0.0-4.0); HEMATOCRIT 32.5 % (35.0-46.0); HEMO FLAGS DIFF FINAL; LYMPH % 32.7 % (9.0-44.0); LYMPHOCYTE # 2.5 TH/MM3 (1.0-4.8); MEAN CELL VOLUME 81.2 FL (80.0-100.0); MONO % 6.2 % (0.0-8.0); NEUT % 59.1 % (16.0-70.0); PLATELET COUNT 412 TH/MM3 (150-450); RED BLOOD COUNT 4.01 MIL/MM3 (4.00-5.30); RED CELL DISTRIBUTION WIDTH 14.6 % (11.6-17.2); WHITE BLOOD COUNT 7.7 TH/MM3 (4.0-11.0)
[2016-08-15] MEDS: PHENYTOIN SODIUM 100 MG CAP PO SCH (06:46)
[2016-08-15] MEDS: INSULIN ASPART SUPPLEMENTAL SCALE SQ SCH (06:49)
--- NOTE | 2016-08-15 07:22 | HHI.PR ---
Subjective Remarks Had some agitation last night. Responded well to ativan single dose. Slept well thereafter. 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 Her significant other had left for a few hrs and she became agitated. He is back now and she has settled down. Imaging, EEG reviewed. Objective Vitals Vital Signs Date Time Temp Pulse Resp B/P Pulse Ox O2 Delivery O2 Flow Rate FiO2 08/15/16 04:00 75 08/15/16 04:00 98.0 74 18 155/60 97 08/15/16 00:00 81 08/15/16 00:00 98.4 82 18 96 08/14/16 20:00 76 08/14/16 20:00 98.4 79 18 165/64 97 08/14/16 16:00 98.4 76 22 137/53 97 08/14/16 16:00 76 08/14/16 12:00 98.1 72 19 143/51 96 08/14/16 12:00 72 08/14/16 09:00 68 22 126/64 08/14/16 08:00 98.3 68 26 142/79 97 08/14/16 08:00 69 08/14/16 08/14/16 08/15/16 15:00 23:00 07:00 Intake Total 495 ml 855 ml 694 ml Output Total 450 ml 300 ml Balance 495 ml 405 ml 394 ml Intake Oral 240 ml 300 ml 120 ml IV Total 255 ml 555 ml 574 ml Output Urine Total 450 ml 300 ml # Voids 2 1 1 # Bowel Movements 0 0 0 GENERAL: sleeping, arouses to voice, aware she is in [place], was able to recall recent Dr's name and her PCP's name. SKIN: Warm and dry. HEAD: Normocephalic. EYES: No scleral icterus. No injection or drainage. EOMI. NECK: Supple, trachea midline. No JVD or lymphadenopathy. CARDIOVASCULAR: Distant heart sounds, rrr, no significant murmur RESPIRATORY: Breath sounds equal bilaterally. No accessory muscle use. GASTROINTESTINAL: Abdomen soft, non-tender, nondistended. MUSCULOSKELETAL: No cyanosis, or edema. BACK: Nontender without obvious deformity. No CVA tenderness. Result Diagram: 08/15/16 0530 08/14/16 0548 Imaging Last Impressions Head CT 08/13/16 1601 Signed Impressions: Service Date/Time: August 16:20 - CONCLUSION: Normal examination. Left lens surgery. Onel Morrison MD Chest X-Ray 08/13/16 1601 Signed Impressions: Service Date/Time: August 16:38 - CONCLUSION: No acute disease Farzad Franklin MD Urinary Catheter: No Vascular Central Line Catheter: No A/P Problem List: (1) TIA (transient ischemic attack) Status: Acute Plan: Neuro deficits apparently resolved. Seems back to baseline per her significant other. She did have period of agitation last PM, but appears calm and appropriate this AM (2) Paroxysmal a-fib Status: Acute Plan: pt converted to sinus rhythm on 08/14/16 Currently on Eliquis Rate controlled. (3) HLD (hyperlipidemia) Status: Chronic Plan: resume statin (4) Hypertension Status: Chronic Plan: fair control. Continue BP meds (5) Type 2 diabetes mellitus Status: Chronic Plan: will resume metformin as outpt. (6) EEG abnormality Status: Acute Plan: possible epileptiform focus. Neurology on the case. Dilantin load given. Will dose per neuro. 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
[2016-08-15] MEDS ORDERED: ATOR20TA15 PO (07:25)
[2016-08-15] MEDS ORDERED: DILA100C PO ×2 (07:25→08:10)
[2016-08-15] MEDS ORDERED: APIX5TAB PO (07:25)
[2016-08-15] MEDS ORDERED: CARD180C5 PO (07:25)
[2016-08-15 08:00] VITALS: BP 133/63; PULSE 75; PULSE 86; RESP 18; TEMP 98.9; O2SAT 97
--- NOTE | 2016-08-15 08:14 | HHI.DS ---
Discharge Summary Admission Date Aug 14, 2016 at 17:00 Discharge Date: Aug 15, 2016 Admitting Diagnosis TIA (1) TIA (transient ischemic attack) Diagnosis: Principal (2) Paroxysmal a-fib Diagnosis: Principal (3) HLD (hyperlipidemia) Diagnosis: Secondary (4) Hypertension Diagnosis: Secondary (5) Type 2 diabetes mellitus Diagnosis: Secondary (6) EEG abnormality Diagnosis: Secondary [facility] Neurology, Dr Ashford Cardiology, Dr Arthur Brief History This is a 80-year-old white female who came to the emergency room today after having another episode where she had slurring of her speech. She reports that yesterday morning she had about a 30-minute episode wherein she had weakness and difficulty using her left arm associated with some slight numbness of the left upper extremity. She had some slight trouble with dysarthria. She had maybe some slight confusion, nothing severe. The symptoms subsided as mentioned after about 30 minutes. She had no chest pain or shortness of breath then. She could not say for sure whether she had any palpitations of her heart then. She does take a baby aspirin a day and when her symptoms went away she felt fine the rest of the day and last night but around two o'clock today her noticed that she had slurring of her speech. She did not seem to have the arm symptoms at this time. He brought her to the emergency room and by the time they got here, her symptoms were pretty much back to normal. She had a CT brain scan that was negative. She was being admitted for a TIA. While she was in the emergency department, she had to go to the bathroom and then became nauseated and then she was noted to go into rapid atrial fibrillation with a heart rate of around 150 to 160 and has been put on a Cardizem drip and her heart rate is down around 100 but still in atrial fibrillation. The neurologist was consulted over the phone by the emergency room physician and it has been recommended she get on a heparin drip. She is being admitted for further evaluation of her atrial fibrillation and TIA. CBC/BMP: 08/15/16 0530 08/14/16 0525 Significant Findings Laboratory Tests Test 08/13/16 08/14/16 08/14/16 08/14/16 16:05 00:30 05:25 07:30 Red Blood Count 3.98 MIL/MM3 (4.00-5.30) Hemoglobin 10.5 GM/DL (11.6-15.3) Hematocrit 32.7 % (35.0-46.0) Mean Corpuscular Hemoglobin 26.4 PG (27.0-34.0) Estimat Glomerular Filtration 57 ML/MIN (>89) 62 ML/MIN (>89) Rate Aspartate Amino Transf 11 U/L (15-37) (AST/SGOT) Troponin I LESS THAN 0.02 NG/ML (0.02-0.05) Albumin 3.2 GM/DL (3.4-5.0) Activated Partial 39.4 SEC 36.5 SEC Thromboplast Time (24.3-30.1) (24.3-30.1) Calcium Level 8.4 MG/DL (8.5-10.1) LDL Cholesterol 108 MG/DL (0-99) Test 08/15/16 05:30 Hemoglobin 10.4 GM/DL (11.6-15.3) Hematocrit 32.5 % (35.0-46.0) Mean Corpuscular Hemoglobin 26.0 PG (27.0-34.0) Hospital Course Pt converted to sinus rhythm on day 1. Neuro symptoms resolved. Images noted from possible old stroke, nothing acute. EEG revealed possible epileptiform focus and encephalopathy. She was placed on Eliquis re: Afib/TIA, Dilantin re: possible seizure d/o. Remained stable and d/c home. Did well with PT. Pt Condition on Discharge: Stable Discharge Disposition: Discharge Home Discharge Instructions DIET: Follow Instructions for: Diabetic Diet Activities you can perform: Weight Bearing as [place] Activities to Avoid: Driving Other Activity Instructions: resume activities slowly and advance as tolerated. New Orders: PHENYTOIN (DILANTIN) - 2-3 Days New Medications: Phenytoin Extended (Dilantin) 100 Mg Cap 300 MG PO HS PRN seizure #31 Ref 0 CAP Apixaban (Eliquis) 5 Mg Tab 5 MG PO BID TIA #60 TAB Atorvastatin (Atorvastatin) 20 Mg Tab 20 MG PO DAILY hyperlipidemia #31 TAB Diltiazem CD 24 HR (Cardizem CD 24 HR) 180 Mg Caper 180 MG PO DAILY htn #31 CAP Continued Medications: Metformin (Metformin) 500 Mg Tab 500 MG PO DAILY With a meal Blood Sugar Management #30 Ref 0 TAB Discontinued Medications: Aspirin (Aspirin Low Dose) 81 Mg Chew 81 MG CHEW DAILY Ref 0 TAB Lisinopril (Lisinopril) 10 Mg Tab 10 MG PO DAILY #30 Ref 0 TAB Lovastatin (Lovastatin) 20 Mg Tab 20 MG PO DAILY Cholesterol Management #30 Ref 0 TAB Blayne Martinez MD PhD Aug 15, 2016 08:14
[2016-08-15] MEDS: ATORVASTATIN 20 MG TAB PO SCH (09:41)
[2016-08-15] MEDS: DILTIAZEM-CD 180 MG CAP ER PO SCH (09:41)
[2016-08-15] MEDS: APIXABAN 5 MG TABLET PO SCH (09:41)
--- NOTE | 2016-08-15 11:01 | HHI.PR ---
Review/Management Diagnosis/Plan: (1) TIA (transient ischemic attack) Plan: probable rt hemispheric tia, cardioembolic with confusion and incontinence, r/o sz cta's nml mri brain- old left frontal lesion recs neuro stable eeg-+ dilantin given overnight, home on 300mg qhs check level in 2-3 days and f/u with us upcoming d/w medical no driving/climbing heights d/w pt/spouse (2) Paroxysmal a-fib (3) HLD (hyperlipidemia) Plan: statin for goal LDL <100 closer to 70 Subjective Subjective Comments No acute events reported no hx of known sz's No headache No chest pain No dyspnea Allergies Allergies Coded Allergies No Known Allergies (Verified08/13/16) Uncoded Allergies NKA ( Allergy, Unknown, 01/09/03) Review of Systems All other ROS: ROS reviewed as documented in chart Exam I&O / VS 08/14/16 08/14/16 08/15/16 15:00 23:00 07:00 Intake Total 495 ml 855 ml 694 ml Output Total 450 ml 300 ml Balance 495 ml 405 ml 394 ml Intake Oral 240 ml 300 ml 120 ml IV Total 255 ml 555 ml 574 ml Output Urine Total 450 ml 300 ml # Voids 2 1 1 # Bowel Movements 0 0 0 Vital Signs Date Time Temp Pulse Resp B/P Pulse Ox O2 Delivery O2 Flow Rate FiO2 08/15/16 08:00 98.9 86 18 133/63 97 08/15/16 08:00 75 08/15/16 04:00 75 08/15/16 04:00 98.0 74 18 155/60 97 08/15/16 00:00 81 08/15/16 00:00 98.4 82 18 96 08/14/16 20:00 76 08/14/16 20:00 98.4 79 18 165/64 97 08/14/16 16:00 98.4 76 22 137/53 97 08/14/16 16:00 76 08/14/16 12:00 98.1 72 19 143/51 96 08/14/16 12:00 72 General: Alert and Oriented Eye: EOMI Respiratory: Non-labored respirations Cardiology: Normal rate Musculoskeletal: ROM Neurologic: Alert, Oriented Psychiatric: Cooperative, Appropriate mood & affect, Normal judgement Exam Comments ox 3. no aphasia,. follows. left surgical cataract extraction changes, mild head dyskinesias, face sym, vff, eomi, no drift, no neglect Objective Micro and Labs Laboratory Tests Test 08/15/16 05:30 White Blood Count 7.7 Red Blood Count 4.01 Hemoglobin 10.4 Hematocrit 32.5 Mean Corpuscular Volume 81.2 Mean Corpuscular Hemoglobin 26.0 Mean Corpuscular Hemoglobin 32.0 Concent Red Cell Distribution Width 14.6 Platelet Count 412 Mean Platelet Volume 8.4 Neutrophils (%) (Auto) 59.1 Lymphocytes (%) (Auto) 32.7 Monocytes (%) (Auto) 6.2 Eosinophils (%) (Auto) 1.5 Basophils (%) (Auto) 0.5 Neutrophils # (Auto) 4.6 Lymphocytes # (Auto) 2.5 Monocytes # (Auto) 0.5 Eosinophils # (Auto) 0.1 Basophils # (Auto) 0.0 CBC Comment DIFF FINAL Differential Comment Problem Qualifiers (1) TIA (transient ischemic attack): Qualified 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
== END 2016-08-15 10:15 | disposition home or self-care (01) | DRG 69 ==
LOC: PHED 15:50 → PHEDA 17:21 → PHICU 19:50 → OBSVTOIN 08-14 17:00
PROVIDERS: ADMIT Family Medicine; ATTEND Family Medicine
DX: G45.9 Transient cerebral ischemic attack, unspecified (principal); R56.9 Unspecified convulsions; I48.0 Paroxysmal atrial fibrillation; E11.9 Type 2 diabetes mellitus without complications; I10 Essential (primary) hypertension; E78.5 Hyperlipidemia, unspecified; R94.01 Abnormal electroencephalogram [EEG]
CPT/HCPCS: 70450; 70496; 70498; 70551; 71010; 80048; 80053; 80061; 82948; 84443; 84484; 85025; 85610; 85730; 93005; 93306; 93880; 95819; 96374; G0378; G8987-GP; G8988-GP; J1644; J2060; J2405; J7030; Q9967